=== PATIENT | male | born 1960 | race Caucasian/White ===

== ENCOUNTER 2024-02-24 23:58 | Emergency (ER) | payer MEDICARE, MEDICAID ==
[~2024-02-24] VITALS: Ht 162.6 cm; Wt 65.6 kg
[2024-02-25] MEDS: NS 1,000 ML IV ONE (00:05)
[2024-02-25 00:06] VITALS: BP 97/54
[2024-02-25 00:31] LABS: BASO # 0.1 10^3/uL (0.0-0.2); BASO % 0.6 % (0.0-1.0); EOS # 0.1 10^3/uL (0.0-0.5); EOS % 1.2 % (0.0-3.0); HEMATOCRIT 43.3 % (42.0-52.0); HEMOGLOBIN 13.5 g/dl (13.5-17.5); LYMPH % 31.4 % (24.0-44.0); MEAN CORPUSCULAR HEMOGLOBIN 29.1 pg (27.0-33.0); MEAN CORPUSCULAR HGB CONC 31.2 g/dl (32.0-36.5); MEAN CORPUSCULAR VOLUME 93.3 fl (80.0-96.0); MONO # 1.1 10^3/uL (0.0-0.8); MONO % 11.5 % (2.0-8.0); NEUTROPHILS # 5.2 10^3/uL (1.5-8.5); PLATELET COUNT, AUTOMATED 329 10^3/uL (150-450); RED BLOOD COUNT 4.64 10^6/uL (4.30-6.10); WHITE BLOOD COUNT 9.5 10^3/uL (4.0-10.0)
[2024-02-25] MEDS: NALOXONE 2MG/2ML SYRINGE IV STA ×2 (00:32→00:51)
[2024-02-25 00:33] VITALS: TEMP 98.9
[2024-02-25 00:47] LABS: INR 1.1; PARTIAL THROMBOPLASTIN TIME 33.3 SECONDS (24.8-34.2); PROTHROMBIN TIME 13.8 SECONDS (12.5-14.5)
[2024-02-25 00:53] LABS: ABG BASE EXCESS -5.4 (-2.0-2.0); ABG HCO3 20.2 MMOL/L (22.0-26.0); ABG O2 SATURATION 99.8 % (95.0-99.0); ABG PARTIAL PRESSURE CO2 39.6 mmHg (35.0-45.0); ABG PARTIAL PRESSURE O2 406.8 mmHg (75.0-100.0); ABG STANDARD HCO3 20.1 MMOL/L. (22.0-26.0); ABG TOTAL CO2 21.4 MMOL/L (22.0-29.0); ABG pH (ARTERIAL) 7.325 UNITS (7.350-7.450)
[2024-02-25 00:57] LABS: CK-MB VALUE MASS 8.8 NG/ML (<3.6); ETHYL ALCOHOL (ETHANOL) 0.004 % (0.000-0.010)
[2024-02-25 00:58] LABS: CPK CREATINE PHOSPHOKINASE 917 U/L (46-171); MB/CK RELATIVE INDEX 0.95 (< OR =4)
[2024-02-25 00:59] LABS: BLOOD UREA NITROGEN 15 MG/DL (9-23); CALCIUM LEVEL 9.4 MG/DL (8.5-10.1); CARBON DIOXIDE LEVEL 17 MMOL/L (20-31); CHLORIDE LEVEL 106 MMOL/L (98-107); CREATININE FOR GFR 0.79 MG/DL (0.70-1.30); GLOMERULAR FILTRATION RATE > 60.0 (>56); GLUCOSE, FASTING 96 MG/DL (60-100); SODIUM LEVEL 139 MMOL/L (136-145)
[2024-02-25 01:12] LABS: BARBITURATES URINE NEGATIVE (NEGATIVE); COCAINE METABOLITE URINE NEGATIVE (NEGATIVE); OPIATES URINE NEGATIVE (NEGATIVE); PHENCYCLIDINE URINE NEGATIVE (NEGATIVE)
[2024-02-25 01:13] LABS: AMPHETAMINES LEVEL URINE POSITIVE (NEGATIVE); BENZODIAZEPINES URINE POSITIVE (NEGATIVE); CANNABINOIDS URINE POSITIVE (NEGATIVE); METHADONE URINE POSITIVE (NEGATIVE)
[2024-02-25 06:16] VITALS: O2SAT 12
[2024-02-25 06:31] VITALS: BP 130/89
== END 2024-02-25 06:58 | disposition home or self-care (01) ==
LOC: EDBD 23:58 → M ED 23:58
DX: G40.909 Epilepsy, unspecified, not intractable, without status epilepticus (principal); F19.10 Other psychoactive substance abuse, uncomplicated; I45.10 Unspecified right bundle-branch block; R00.0 Tachycardia, unspecified; F12.10 Cannabis abuse, uncomplicated
CPT/HCPCS: 70450; 71045; 80048; 80307; 82077; 82550; 82553; 82803; 84484; 85025; 85610; 85730; 93005; 93041; 94760; 96374; 96375; 99291; 99292; J2310

== ENCOUNTER 2024-02-27 18:36 | Emergency (ER) | payer MEDICARE, MEDICAID ==
[~2024-02-27] VITALS: Ht 162.6 cm; Wt 60.5 kg
[2024-02-27] MEDS ORDERED: LORazepam 2 MG/ML 1ML VIAL As Ordered ONE (18:40)
[2024-02-27 18:46] VITALS: TEMP 96.7
[2024-02-27 19:05] LABS: BASO # 0.1 10^3/uL (0.0-0.2); BASO % 0.6 % (0.0-1.0); EOS # 0.2 10^3/uL (0.0-0.5); EOS % 1.7 % (0.0-3.0); HEMATOCRIT 42.1 % (42.0-52.0); HEMOGLOBIN 13.6 g/dl (13.5-17.5); LYMPH # 3.3 10^3/uL (1.5-5.0); MEAN CORPUSCULAR HEMOGLOBIN 29.8 pg (27.0-33.0); MEAN CORPUSCULAR HGB CONC 32.3 g/dl (32.0-36.5); MEAN CORPUSCULAR VOLUME 92.3 fl (80.0-96.0); MONO # 1.2 10^3/uL (0.0-0.8); MONO % 10.1 % (2.0-8.0); NEUTROPHILS # 6.9 10^3/uL (1.5-8.5); NEUTROPHILS % 59.3 % (36.0-66.0); PLATELET COUNT, AUTOMATED 385 10^3/uL (150-450); RED BLOOD COUNT 4.56 10^6/uL (4.30-6.10); WHITE BLOOD COUNT 11.7 10^3/uL (4.0-10.0)
[2024-02-27] MEDS: UNRESOLVED CLARIFICATION ENTRY XX STA (19:13)
[2024-02-27] MEDS: NS 1,000 ML IV ONE (19:13)
[2024-02-27] MEDS: LORazepam 2 MG/ML 1ML VIAL IV STA (19:22)
[2024-02-27 19:29] LABS: ETHYL ALCOHOL (ETHANOL) < 0.003 % (0.000-0.010)
[2024-02-27 19:31] LABS: ALBUMIN 3.7 G/DL (3.2-5.2); ALKALINE PHOSPHATASE 140 U/L (46-116); ALT/SGPT 36 U/L (7.0-40); AST/SGOT 43 U/L (<34); BILIRUBIN,DIRECT < 0.1 MG/DL (<0.4); BILIRUBIN,TOTAL 0.3 MG/DL (0.3-1.2); BLOOD UREA NITROGEN 12 MG/DL (9-23); CALCIUM LEVEL 9.4 MG/DL (8.3-10.6); CARBON DIOXIDE LEVEL 19 MMOL/L (20-31); CHLORIDE LEVEL 108 MMOL/L (98-107); CREATININE FOR GFR 0.61 MG/DL (0.70-1.30); GLOMERULAR FILTRATION RATE > 60.0 (>49); GLUCOSE, FASTING 103 MG/DL (74-106); MAGNESIUM LEVEL 1.7 MG/DL (1.8-2.4); POTASSIUM SERUM 4.1 MMOL/L (3.5-5.1); SODIUM LEVEL 140 MMOL/L (136-145); TOTAL PROTEIN 6.9 G/DL (5.7-8.2)
[2024-02-27 22:17] LABS: BARBITURATES URINE NEGATIVE (NEGATIVE); BENZODIAZEPINES URINE NEGATIVE (NEGATIVE); COCAINE METABOLITE URINE NEGATIVE (NEGATIVE); METHADONE URINE NEGATIVE (NEGATIVE); OPIATES URINE NEGATIVE (NEGATIVE); PHENCYCLIDINE URINE NEGATIVE (NEGATIVE)
[2024-02-27 22:20] LABS: AMPHETAMINES LEVEL URINE POSITIVE (NEGATIVE); CANNABINOIDS URINE POSITIVE (NEGATIVE)
[2024-02-28 06:00] VITALS: O2SAT 94
[2024-02-28 06:01] VITALS: BP 174/89
== END 2024-02-28 06:57 | disposition home or self-care (01) ==
LOC: EDBD 18:36 → M ED 18:36
DX: F19.10 Other psychoactive substance abuse, uncomplicated (principal); R56.9 Unspecified convulsions; Z91.030 Bee allergy status
CPT/HCPCS: 70450; 80048; 80076; 80307; 82077; 83605; 83735; 85025; 93041; 94760; 96374; 99285; J2060

== ENCOUNTER 2024-09-24 20:28 | Observation (INO) | payer MEDICARE, MEDICAID ==
[~2024-09-24] VITALS: Ht 170.2 cm; Wt 65.0 kg
[2024-09-24 21:05] LABS: BASO # 0.1 10^3/uL (0.0-0.2); BASO % 0.6 % (0.0-1.0); EOS # 0.2 10^3/uL (0.0-0.5); EOS % 1.1 % (0.0-3.0); HEMATOCRIT 34.4 % (42.0-52.0); HEMOGLOBIN 10.7 g/dl (13.5-17.5); LYMPH # 2.4 10^3/uL (1.5-5.0); LYMPH % 17.1 % (24.0-44.0); MEAN CORPUSCULAR HEMOGLOBIN 26.8 pg (27.0-33.0); MEAN CORPUSCULAR HGB CONC 31.1 g/dl (32.0-36.5); MONO # 1.2 10^3/uL (0.0-0.8); MONO % 8.5 % (2.0-8.0); NEUTROPHILS # 10.1 10^3/uL (1.5-8.5); NEUTROPHILS % 72.2 % (36.0-66.0); PLATELET COUNT, AUTOMATED 411 10^3/uL (150-450); WHITE BLOOD COUNT 13.9 10^3/uL (4.0-10.0)
[2024-09-24] MEDS: NS (Normal Saline) 0.9% 1,000 ML IV ONE ×2 (21:15→22:40)
[2024-09-24] MEDS: LORazepam 2 MG/ML 1ML VIAL IV STA (21:29)
[2024-09-24 21:36] LABS: ALBUMIN 3.7 G/DL (3.2-5.2); ALKALINE PHOSPHATASE 131 U/L (40-129); ALT/SGPT 19 U/L (7.0-40); AST/SGOT 17 U/L (<34); BILIRUBIN,TOTAL 0.3 MG/DL (0.3-1.2); BLOOD UREA NITROGEN 15 MG/DL (9-23); CALCIUM LEVEL 9.3 MG/DL (8.3-10.6); CARBON DIOXIDE LEVEL 14 MMOL/L (20-31); CHLORIDE LEVEL 105 MMOL/L (98-107); CREATININE FOR GFR 0.81 MG/DL (0.70-1.30); GLOMERULAR FILTRATION RATE > 60.0 (>49); GLUCOSE, FASTING 157 MG/DL (74-106); MAGNESIUM LEVEL 2.4 MG/DL (1.8-2.4); POTASSIUM SERUM 4.3 MMOL/L (3.5-5.1); SALICYLATE LEVEL < 3.0 MG/DL (<30); SODIUM LEVEL 142 MMOL/L (136-145); TOTAL PROTEIN 7.5 G/DL (5.7-8.2)
[2024-09-24 21:39] LABS: ETHYL ALCOHOL (ETHANOL) 0.003 % (0.000-0.010)
[2024-09-24 21:42] LABS: KETONE, URINE AUTO RFX NEGATIVE (NEGATIVE); LEUKOCYTE ESTERASE UR AUTO RFX NEGATIVE (NEGATIVE); MUCUS, URINE RFX SMALL (NEGATIVE); NITRITE, URINE AUTO RFX NEGATIVE (NEGATIVE); RBC, URINE AUTO RFX 10 /HPF (0-3); SQUAM EPITHELIAL CELL UR AURFX 0 /HPF (0-6); WBC, URINE AUTO RFX 3 /HPF (0-3)
[2024-09-24] MEDS: levETIRAcetam INJection 1,000 MG in IV 1 EA IV ONE (21:42)
[2024-09-24 21:58] LABS: BARBITURATES URINE NEGATIVE (NEGATIVE); COCAINE METABOLITE URINE NEGATIVE (NEGATIVE); METHADONE URINE NEGATIVE (NEGATIVE); OPIATES URINE NEGATIVE (NEGATIVE); PHENCYCLIDINE URINE NEGATIVE (NEGATIVE)
[2024-09-24 22:05] LABS: AMPHETAMINES LEVEL URINE POSITIVE (NEGATIVE); BENZODIAZEPINES URINE POSITIVE (NEGATIVE); CANNABINOIDS URINE POSITIVE (NEGATIVE)
[2024-09-24] MEDS: cefTRIAXone SOD 1 GM in DEXTROSE 5% (D5W) ADV/MINI-BAG 50 ML IV ONE (23:00)
[2024-09-24 23:30] LABS: ABG BASE EXCESS -3.8 (-2.0-2.0); ABG HCO3 21.4 MMOL/L (22.0-26.0); ABG O2 SATURATION 75.9 % (95.0-99.0); ABG PARTIAL PRESSURE CO2 39.4 mmHg (35.0-45.0); ABG STANDARD HCO3 20.9 MMOL/L. (22.0-26.0); ABG TOTAL CO2 22.6 MMOL/L (23.0-31.0); ABG pH (ARTERIAL) 7.353 UNITS (7.350-7.450)
[2024-09-25] MEDS ORDERED: LORazepam 2 MG/ML 1ML VIAL IV PRN ×2 (01:05)
[2024-09-25] MEDS: D5W/LR 1,000 ML IV SCH (01:15)
[2024-09-25] MEDS ORDERED: HOME MED LIST COMPLETE! XX SCH (01:50)
[2024-09-25 08:31] LABS: BLOOD UREA NITROGEN 10 MG/DL (9-23); CARBON DIOXIDE LEVEL 22 MMOL/L (20-31); CHLORIDE LEVEL 109 MMOL/L (98-107); CREATININE FOR GFR 0.55 MG/DL (0.70-1.30); GLOMERULAR FILTRATION RATE > 60.0 (>49); GLUCOSE, FASTING 108 MG/DL (74-106); SODIUM LEVEL 139 MMOL/L (136-145)
[2024-09-25 08:40] LABS: BASO # 0.1 10^3/uL (0.0-0.2); BASO % 0.6 % (0.0-1.0); EOS # 0.1 10^3/uL (0.0-0.5); EOS % 1.2 % (0.0-3.0); HEMATOCRIT 32.8 % (42.0-52.0); HEMOGLOBIN 10.3 g/dl (13.5-17.5); LYMPH # 1.4 10^3/uL (1.5-5.0); LYMPH % 12.1 % (24.0-44.0); MEAN CORPUSCULAR HEMOGLOBIN 26.5 pg (27.0-33.0); MEAN CORPUSCULAR HGB CONC 31.4 g/dl (32.0-36.5); MEAN CORPUSCULAR VOLUME 84.5 fl (80.0-96.0); MONO # 0.7 10^3/uL (0.0-0.8); NEUTROPHILS # 9.1 10^3/uL (1.5-8.5); NEUTROPHILS % 79.8 % (36.0-66.0); PLATELET COUNT, AUTOMATED 355 10^3/uL (150-450); RED BLOOD COUNT 3.88 10^6/uL (4.30-6.10); WHITE BLOOD COUNT 11.4 10^3/uL (4.0-10.0)
[2024-09-25] MEDS: PANTOPRAZOLE 40MG VIAL IV SCH (09:14)
[2024-09-25] MEDS: levETIRAcetam INJection 500 MG in DEXTROSE 5% (D5W) MINI-BAG PLU 100 ML IV SCH (09:26)
[2024-09-25] MEDS: NS (Normal Saline) 0.9% 1,000 ML IV SCH (12:27)
[2024-09-25 16:23] LABS: PERCENT SATURATION 21.8 % (19.7-50.0)
[2024-09-25 16:31] LABS: FOLATE 14.87 NG/ML (>5.4)
[2024-09-25 16:32] LABS: FERRITIN 13.2 NG/ML (10.5-307.3)
[2024-09-25] MEDS ORDERED: RIVAROXABAN 10MG TAB (XARELTO) PO SCH (18:00)
[2024-09-25] MEDS: levETIRAcetam 250MG TABLET (KEPPRA) PO SCH (21:26)
[2024-09-25] MEDS: ATORVASTATIN 20 MG TAB PO SCH (21:26)
[2024-09-26 07:05] LABS: BASO # 0.1 10^3/uL (0.0-0.2); BASO % 0.9 % (0.0-1.0); EOS # 0.1 10^3/uL (0.0-0.5); EOS % 1.4 % (0.0-3.0); HEMATOCRIT 32.1 % (42.0-52.0); LYMPH # 1.3 10^3/uL (1.5-5.0); LYMPH % 20.6 % (24.0-44.0); MEAN CORPUSCULAR HEMOGLOBIN 25.7 pg (27.0-33.0); MEAN CORPUSCULAR HGB CONC 31.2 g/dl (32.0-36.5); MEAN CORPUSCULAR VOLUME 82.5 fl (80.0-96.0); MONO # 0.5 10^3/uL (0.0-0.8); NEUTROPHILS # 4.4 10^3/uL (1.5-8.5); NEUTROPHILS % 68.8 % (36.0-66.0); PLATELET COUNT, AUTOMATED 324 10^3/uL (150-450); RED BLOOD COUNT 3.89 10^6/uL (4.30-6.10); WHITE BLOOD COUNT 6.4 10^3/uL (4.0-10.0)
[2024-09-26 07:44] LABS: BLOOD UREA NITROGEN 6 MG/DL (9-23); CALCIUM LEVEL 8.2 MG/DL (8.3-10.6); CARBON DIOXIDE LEVEL 22 MMOL/L (20-31); CHLORIDE LEVEL 110 MMOL/L (98-107); CHOLESTEROL LEVEL 145 MG/DL (<200); CHOLESTEROL RISK RATIO 4.08 (<5); CREATININE FOR GFR 0.65 MG/DL (0.70-1.30); GLOMERULAR FILTRATION RATE > 60.0 (>49); GLUCOSE, FASTING 82 MG/DL (74-106); HDL CHOLESTEROL 35.5 MG/DL (>40); LDL CHOLESTEROL 91.7 MG/DL (<100); NON-HDL-C 109.5 MG/DL; SODIUM LEVEL 141 MMOL/L (136-145); TRIGLYCERIDES LEVEL 89 MG/DL (<150)
[2024-09-26] MEDS: ASPIRIN 81MG ENTERIC TABLET PO SCH (08:56)
[2024-09-26] MEDS: ENOXAPARIN 40MG/0.4ML SYRINGE (J1650 PER 10MG) SC SCH (08:56)
[2024-09-26] MEDS: FLUBLOK(EGGFREE) TRIVAL(24-25) VACCINE PF 0.5ML SYRINGE 18YRS & OLDER IM.IMMUN ONE (09:37)
[2024-09-26] MEDS ORDERED: ASPI81TAEC PO (09:59)
[2024-09-26] MEDS ORDERED: KEPP1TAB PO (09:59)
[2024-09-26] MEDS ORDERED: ATOR40TA75 PO (09:59)
[2024-09-26] MEDS ORDERED: FERR325T3 PO (10:00)
[2024-09-26 11:19] VITALS: BP 121/64; TEMP 99.4; O2SAT 99
== END 2024-09-26 11:22 | disposition home or self-care (01) ==
LOC: M ED 20:28 → M ED INP 20:29
PROVIDERS: ADMIT Student in an Organized Health Care Education/Training Program; ATTEND Student in an Organized Health Care Education/Training Program
DX: G40.409 Other generalized epilepsy and epileptic syndromes, not intractable, without status epilepticus (principal); G92.8 Other toxic encephalopathy; F19.10 Other psychoactive substance abuse, uncomplicated; D72.829 Elevated white blood cell count, unspecified; E87.20 Acidosis, unspecified; D64.9 Anemia, unspecified; Z86.73 Personal history of transient ischemic attack (TIA), and cerebral infarction without residual deficits; K40.90 Unilateral inguinal hernia, without obstruction or gangrene, not specified as recurrent; Z91.148 Patient's other noncompliance with medication regimen for other reason; F17.200 Nicotine dependence, unspecified, uncomplicated; Z23 Encounter for immunization
CPT/HCPCS: 36415; 36600; 70450; 71045; 80048; 80053; 80061; 80143; 80307; 81001; 82077; 82607; 82728; 82746; 82803; 83550; 83605; 83735; 84466; 85025; 87040; 87486; 87581; 87633; 87798; 90673; 95819; 96361; 96365; 96366; 96367; 96368; 96372; 96375; 96376; 99285; G0008; G0378; J0696; J1650; J1953; J2060; J2470

== ENCOUNTER 2025-02-13 02:02 | Emergency (ER) | payer MEDICARE, MEDICAID ==
[~2025-02-13] VITALS: Ht 160 cm; Wt 60.2 kg
[~2025-02-13 02:02] MED LIST: ASPI81TAEC PO; ATOR40TA75 PO; FERR325T3 PO; KEPP1TAB PO
[2025-02-13] MEDS: ONDANSETRON 4MG 2ML VIAL IV ONE (09:27)
[2025-02-13] MEDS: MORPHINE 2 MG/ML 1 ML VIAL IV PRN (09:28)
[2025-02-13 09:59] LABS: KETONE, URINE AUTO RFX NEGATIVE (NEGATIVE); LEUKOCYTE ESTERASE UR AUTO RFX NEGATIVE (NEGATIVE); NITRITE, URINE AUTO RFX NEGATIVE (NEGATIVE); RBC, URINE AUTO RFX 0 /HPF (0-3); SQUAM EPITHELIAL CELL UR AURFX 0 /HPF (0-6); WBC, URINE AUTO RFX 1 /HPF (0-3)
[2025-02-13] MEDS ORDERED: HYDR-3713 PO (13:32)
[2025-02-13 13:52] VITALS: BP 145/80; TEMP 96.4; O2SAT 97
== END 2025-02-13 14:03 | disposition home or self-care (01) ==
LOC: M ED 02:02
DX: K40.20 Bilateral inguinal hernia, without obstruction or gangrene, not specified as recurrent (principal); N43.3 Hydrocele, unspecified; M47.816 Spondylosis without myelopathy or radiculopathy, lumbar region; E78.5 Hyperlipidemia, unspecified; G40.909 Epilepsy, unspecified, not intractable, without status epilepticus; F17.210 Nicotine dependence, cigarettes, uncomplicated; F19.10 Other psychoactive substance abuse, uncomplicated; Z91.030 Bee allergy status; Z79.1 Long term (current) use of non-steroidal anti-inflammatories (NSAID); Z79.899 Other long term (current) drug therapy
CPT/HCPCS: 70450; 72125; 72128; 72131; 76857; 76870; 81001; 93976; 96374; 96375; 99284; J2405

== ENCOUNTER 2025-05-08 08:03 | Day surgery (SDC) | payer MEDICARE, MEDICAID ==
[~2025-05-08] VITALS: Ht 158.8 cm; Wt 59.8 kg
[~2025-05-08 08:03] MED LIST changes: +ECOT81TA5 PO; +HYDR-3713 PO; +PROA1AER2 IN
[2025-05-08] MEDS ORDERED: dexAMETHasone 4 MG/ML 1 ML VIAL As Ordered ONE (08:19)
[2025-05-08] MEDS ORDERED: MIDAZOLAM INJ 2 MG/2 ML VIAL As Ordered ONE (08:19)
[2025-05-08] MEDS ORDERED: KETOROLAC 30 MG/ML 1 ML VIAL As Ordered ONE (08:19)
[2025-05-08] MEDS ORDERED: ONDANSETRON 4MG/2ML VIAL As Ordered ONE (08:20)
[2025-05-08] MEDS ORDERED: ACETAMINOPHEN 1000MG/100ML IV BAG As Ordered ONE (08:20)
[2025-05-08] MEDS ORDERED: SUGAMMADEX SODIUM 200 MG/2 ML VIAL As Ordered ONE (08:20)
[2025-05-08] MEDS ORDERED: LIDOCAINE 2% 100 MG/5 ML SDV (FOR ANES.) As Ordered ONE (08:20)
[2025-05-08] MEDS ORDERED: ROCURONIUM BROMIDE 50MG/5ML VIAL As Ordered ONE (08:20)
[2025-05-08] MEDS ORDERED: ALBUTEROL SULFATE 2.5 MG/0.5 ML INH CONCENTRATE NEB SOLN As Ordered ONE (09:10)
[2025-05-08] MEDS ORDERED: LR 1,000 ML IV SCH (09:10)
[2025-05-08] MEDS ORDERED: HYDROMORPHONE HCL 0.5 MG/0.5 ML SYRINGE IV PRN (09:10)
[2025-05-08] MEDS ORDERED: MORPHINE 4 MG/ML 1 ML VIAL IV PRN ×2 (09:10→11:55)
[2025-05-08] MEDS: ALBUTEROL SULFATE 2.5 MG/0.5 ML INH CONCENTRATE NEB SOLN NEB ONE (09:16)
[2025-05-08] MEDS: ceFAZolin SOD 2 GM IV ONCE IV ONE (10:00)
[2025-05-08] MEDS ORDERED: PHENYLephrine 500MCG 5ML (100MCG/ML) SYRINGE As Ordered ONE (10:23)
[2025-05-08] MEDS ORDERED: ULTRACET TAB PO PRN (11:55)
[2025-05-08] MEDS ORDERED: ACETAMINOPHEN 325 MG TAB PO PRN (11:55)
[2025-05-08] MEDS ORDERED: ONDANSETRON 4MG/2ML VIAL IV PRN ×2 (11:55→12:15)
[2025-05-08] MEDS ORDERED: IPRATROPIUM 0.5 MG/ALBUTEROL 2.5 MG INH SOL UD 3 ML NEB PRN (12:00)
[2025-05-08] MEDS: LR 1,000 ML IV SCH (12:15)
[2025-05-08] MEDS: HYDROMORPHONE HCL 0.5 MG/0.5 ML SYRINGE IV PRN ×2 (12:48→14:27)
[2025-05-08] MEDS: FAMOTIDINE 20 MG/2 ML VIAL IVP ONE (13:22)
[2025-05-08] MEDS: PANTOPRAZOLE 40MG TAB PO SCH (13:22)
[2025-05-08] MEDS: NS (Normal Saline) 0.9% 1,000 ML IV SCH (14:17)
[2025-05-08] MEDS: KETOROLAC 30 MG/ML 1 ML VIAL IV SCH (14:22)
[2025-05-08] MEDS: IPRATROPIUM 0.5 MG/ALBUTEROL 2.5 MG INH SOL UD 3 ML NEB SCH (14:22)
[2025-05-08 14:56] VITALS: BP 146/80; TEMP 98.4; O2SAT 92
[2025-05-08] MEDS: traMADol 50 MG TAB PO PRN (16:53)
[2025-05-08 20:00] VITALS: BP 112/65; TEMP 98.2; O2SAT 97
[2025-05-09] VITALS: BP 126/82; TEMP 98.6; O2SAT 97
[2025-05-09 04:00] VITALS: BP 118/70; TEMP 98.9; O2SAT 96
[2025-05-09 08:00] VITALS: BP 122/69; TEMP 99.2; O2SAT 99
[2025-05-09] MEDS ORDERED: VENTAER INH (08:07)
[2025-05-09] MEDS ORDERED: NICO21DI37 TOP (08:07)
[2025-05-09] MEDS ORDERED: HOME MED LIST COMPLETE! XX SCH (08:10)
== END 2025-05-09 12:33 | disposition home or self-care (01) ==
LOC: M SDC 08:03 → M MS4PR 08:04 → UNDOADMOB 08:04 → M SDC 05-09 12:33 → UNDODISOB 05-09 12:33
PROVIDERS: ATTEND Surgery
DX: K40.90 Unilateral inguinal hernia, without obstruction or gangrene, not specified as recurrent (principal); K41.90 Unilateral femoral hernia, without obstruction or gangrene, not specified as recurrent; J44.9 Chronic obstructive pulmonary disease, unspecified; R56.9 Unspecified convulsions; Z79.899 Other long term (current) drug therapy; F17.210 Nicotine dependence, cigarettes, uncomplicated; Z91.030 Bee allergy status
CPT/HCPCS: 49650; 49659; 94640; C1781; J0131; J0665; J0688; J1100; J1171; J1308; J1885; J2250; J2371; J2405; J3010